=== PATIENT | female | born 1980 | race Caucasian/White ===

== ENCOUNTER 2023-05-27 10:16 | Emergency (ER) | payer OTHER, SELFPAY ==
[2023-05-27 10:20] VITALS: BP 108/73
--- NOTE | 2023-05-27 11:01 | ED.GENMED ---
History of Present Illness
<Rahel Dunn PA-C - Last Filed: 05/27/23 17:41>
General
Chief Complaint: Musculo-Skeletal Complaint
Source: patient
Exam Limitations: none
Time Seen by Provider: 05/27/23 10:29
Nursing documentation reviewed up to this point in time: agreed with
Travel History
Have you had any contact with someone who has COVID-19?: No
Do you have any symptoms of coronavirus? Fever > 100 degrees, chills, cough, shortness of breath, sore throat, loss of taste or smell, muscle aches, or headache?: No
History of Present Illness
History of Present Illness:
Patient is a 42-year-old female with no significant past medical history presenting for evaluation of right foot injury. This occurred about 1 hour ago she said she missed a step while she was walking on the stairs in her home. She landed on her
right foot and was able to stop herself from falling down the stairs. She did not hit her head or sustain any other injuries in the fall. She requires some assistance getting up initially. She has been able to bear minimal weight on her right
foot since. She immediately got in the car and came to the emergency room. Patient denies any numbness or tingling of right foot or toes.
She denies any past injuries to right foot.
Phy Exam
<Rahel Dunn PA-C - Last Filed: 05/27/23 17:41>
Physical Exam
Physical Exam:
General: Well appearing and non-toxic
HEENT: protecting airway
Neck: appears supple
CV: Regular rate rhythm, heart sounds normal, no evidence of cyanosis
Resp: No evidence respiratory distress, lungs clear, no accessory muscle use
Abd: Non-distended
Extremities: Localized edema and tenderness to right dorsal foot at lateral aspect, no tenderness to lateral/medial malleolus, base of fifth metatarsal, midfoot, or base of fibular head; right foot neurovascular intact
Neuro: alert and oriented, speech normal, no focal neurologic deficit
Psych: Normal affect
Skin: Intact, no rashes or bruising
Course
<Rahel Dunn PA-C - Last Filed: 05/27/23 17:41>
Orders/Labs/Results
Orders:
Orders
05/27/23 10:28
CR Foot - Right Min 3 Views Urgent
Comment:
Reason For Exam: injury/pain
05/27/23 11:11
Brandon Wrap Right-Treatment ONCE
Crutches-Treatment ONCE
Ibuprofen [Motrin] 600 mg PO NOW STA
Oxycodone/Acetaminophen [Percocet 5/325] 1 tablet PO NOW STA
Vital Signs
Initial and Last Documented VS:
Initial Vital Signs
Temp Pulse Resp BP Pulse Ox
98.4 F 84 18 108/73 100
05/27/23 10:20 05/27/23 10:20 05/27/23 10:20 05/27/23 10:20 05/27/23 10:20
Last Documented Vital Signs
Temp Pulse Resp BP Pulse Ox
98.4 F 84 18 108/73 100
05/27/23 10:20 05/27/23 10:20 05/27/23 10:20 05/27/23 10:20 05/27/23 10:20
<Luis Angel Vieira DO - Last Filed: 05/27/23 11:12>
Orders/Labs/Results
Orders:
Orders
05/27/23 10:28
CR Foot - Right Min 3 Views Urgent
Comment:
Reason For Exam: injury/pain
05/27/23 11:11
Brandon Wrap Right-Treatment ONCE
Crutches-Treatment ONCE
Ibuprofen [Motrin] 600 mg PO NOW STA
Oxycodone/Acetaminophen [Percocet 5/325] 1 tablet PO NOW STA
Vital Signs
Initial and Last Documented VS:
Initial Vital Signs
Temp Pulse Resp BP Pulse Ox
98.4 F 84 18 108/73 100
05/27/23 10:20 05/27/23 10:20 05/27/23 10:20 05/27/23 10:20 05/27/23 10:20
Last Documented Vital Signs
Temp Pulse Resp BP Pulse Ox
98.4 F 84 18 108/73 100
05/27/23 10:20 05/27/23 10:20 05/27/23 10:20 05/27/23 10:20 05/27/23 10:20
<Rahel Dunn PA-C - Last Filed: 05/27/23 17:41>
MDM/Problems Addressed
Differential Diagnosis Includes:
Foot sprain, foot fracture, foot contusion
MDM/Problems Addressed:
Patient is a 42-year-old female presenting for evaluation of right foot injury after fall about an hour ago. She presents with pain in right foot. She did not hit her head or sustain any other injuries in the fall. Physical exam as documented
above. Tenderness and edema to right dorsal foot. No tenderness at base of fifth metatarsal, medial/lateral malleolus, base fibular head. Right foot neurovascular intact. Very low concern for contaminant ankle injury. Will get x-ray of right
foot. Will give Motrin/Percocet for pain.
X-ray shows no evidence of acute fracture or dislocation. Suspect this is likely a sprain of the right foot. She is stable for discharge with Brandon wrap/crutches. Supportive care at home. Return precautions discussed. Orthopedic referral given if
symptoms persist/worsen patient is comfortable this plan all questions answered.
Chronic conditions affecting care:
N/A
Acute Exacerbation and/or Progression of Chronic Illness:
Acute sprain of right foot
<Rahel Dunn PA-C - Last Filed: 05/27/23 17:41>
*Radiology
Radiology exam reviewed: preliminary read by ED provider and radiology read reviewed
*Pulse Oximetry
Patient hypoxic: no
*[place] Interpretation
Rate: [place]- N/A
*Critical Care Note
Total Time (30-74mins, 75-104mins- exclusive of procedures): Not Applicable
ED Attending Note
<Rahel Dunn PA-C - Last Filed: 05/27/23 17:41>
-
Portions of this chart may have been created with voice recognition software.� Occasional wrong word or��sound alike� substitutions may have occurred due to the inherent limitations of voice recognition software.
<Luis Angel Vieira DO - Last Filed: 05/27/23 11:12>
ED Attending Note
Patient seen and examined by attending physician: Yes
I performed the substantive portion of visit, reviewed & personally made and approve the management plan that is documented in note by myself or ALEX.: Yes
ED Attending Note:
Seen with PA examined independently. Assessment and plan inversion injury to the right foot no tenderness over the lateral malleolus, x-ray noted
Discharge Plan
Departure
Patient Disposition: Home (Routine Discharge)
Date of Disposition: 05/27/23
Time of Disposition: 11:26
Patient with high blood pressure during this ER visit?: No
Condition: Good
Covid-19: Not Applicable
Discharge Problem:
Right foot sprain
Instructions: Sprain (DC), Foot Sprain ED
Referrals:
Uziel Bustamante MD [Family Provider] -
Tali Dickey I., DO [Active] - As needed
Activity Restrictions/Additional Instructions:
-Return to the emergency department with any severe pain, high fevers, numbness/tingling in right lower extremity, intractable pain, significant worsening in current symptoms, or any other concerns
-You can take motrin as needed for pain. Follow package instructions for dosing.
-Continue to use crutches over the next few days and increase weight bearing as tolerated. Keep foot wrapped with BRANDON bandage and apply ice
-Follow-up with orthopedics if symptoms persists or worsen over the next few weeks
Interventions
Interventions:
*Risk Screen - Suicide Last Done: 05/27/23 12:05
*General Assessment Last Done: 05/27/23 12:05
*Neglect/Abuse Screening Last Done: 05/27/23 12:05
ED- Fall Risk Assessment Last Done: 05/27/23 11:08
*ED COVID-19 Vaccine History Last Done: 05/27/23 10:25
*Nursing Disposition Last Done: 05/27/23 12:05
ED-Musculoskeletal Assessment Last Done: 05/27/23 11:08
Discharge Date and Time
Discharge Date/Time: 05/27/23 12:07
[2023-05-27] MEDS: MOTRIN 600 MG PO (11:25)
[2023-05-27] MEDS: PERCOCET 5/325 1 TABLET PO (11:25)
== END 2023-05-27 12:07 | disposition home or self-care (01) ==
LOC: EMR 10:16
PROVIDERS: EMERGENCY PHYSICIAN Emergency Medicine; FAMILY PHYSICIAN Family Medicine
DX: S93.601A Unspecified sprain of right foot, initial encounter (principal); W10.9XXA Fall (on) (from) unspecified stairs and steps, initial encounter
CPT/HCPCS: 99283; 73630

== ENCOUNTER 2023-06-21 08:10 | Outpatient (RCR) | payer OTHER, SELFPAY | END 2023-06-21 23:59 | disposition home or self-care (01) | LOC: RPT 08:10 | PROVIDERS: ATTENDING PHYSICIAN Family Medicine | DX: M25.512 Pain in left shoulder (principal); M79.622 Pain in left upper arm; Z73.6 Limitation of activities due to disability | CPT/HCPCS: 97110; 97112; 97162 ==

== ENCOUNTER 2023-07-19 06:37 | Outpatient (RCR) | payer OTHER, SELFPAY | END 2023-07-19 23:59 | disposition home or self-care (01) | LOC: RPT 06:37 | PROVIDERS: ATTENDING PHYSICIAN Family Medicine | DX: M25.512 Pain in left shoulder (principal); M79.622 Pain in left upper arm; M25.522 Pain in left elbow; Z73.6 Limitation of activities due to disability | CPT/HCPCS: 97010; 97110; 97112; 97140 ==

== ENCOUNTER 2023-08-09 07:02 | Outpatient (RCR) | payer OTHER, SELFPAY | END 2023-08-09 23:59 | disposition home or self-care (01) | LOC: RPT 07:02 | PROVIDERS: ATTENDING PHYSICIAN Family Medicine | DX: M25.512 Pain in left shoulder (principal); M79.622 Pain in left upper arm; M25.522 Pain in left elbow; Z73.6 Limitation of activities due to disability | CPT/HCPCS: 97010; 97110; 97140 ==

== ENCOUNTER → 2024-02-06 14:41 | Outpatient (REF) | payer OTHER, SELFPAY | LOC: WDC 14:41 | PROVIDERS: ATTENDING PHYSICIAN Obstetrics & Gynecology; FAMILY PHYSICIAN Family Medicine | DX: Z12.31 Encounter for screening mammogram for malignant neoplasm of breast (principal) | CPT/HCPCS: 77063; 77067 ==

== ENCOUNTER → 2024-02-21 10:22 | Outpatient (REF) | payer OTHER, SELFPAY | LOC: WDC 10:22 | PROVIDERS: ATTENDING PHYSICIAN Obstetrics & Gynecology; FAMILY PHYSICIAN Family Medicine | DX: R92.8 Other abnormal and inconclusive findings on diagnostic imaging of breast (principal) | CPT/HCPCS: 76642 ==

== ENCOUNTER → 2024-07-09 07:52 | Outpatient (REF) | payer OTHER, SELFPAY | LOC: WDC 07:52 | PROVIDERS: ATTENDING PHYSICIAN Obstetrics & Gynecology; FAMILY PHYSICIAN Family Medicine | DX: R92.8 Other abnormal and inconclusive findings on diagnostic imaging of breast (principal) | CPT/HCPCS: 76642 ==

== ENCOUNTER → 2025-01-07 07:49 | Outpatient (REF) | payer OTHER, SELFPAY | LOC: WDC 07:49 | PROVIDERS: ATTENDING PHYSICIAN Obstetrics & Gynecology; FAMILY PHYSICIAN Family Medicine | DX: R92.8 Other abnormal and inconclusive findings on diagnostic imaging of breast (principal) | CPT/HCPCS: 76642 ==

== ENCOUNTER → 2025-02-26 10:42 | Outpatient (REF) | payer OTHER, SELFPAY | LOC: WDC 10:42 | PROVIDERS: ATTENDING PHYSICIAN Obstetrics & Gynecology; FAMILY PHYSICIAN Family Medicine | DX: Z12.31 Encounter for screening mammogram for malignant neoplasm of breast (principal) | CPT/HCPCS: 77063; 77067 ==

== ENCOUNTER → 2025-03-12 10:37 | Outpatient (REF) | payer OTHER, SELFPAY | LOC: WDC 10:37 | PROVIDERS: ATTENDING PHYSICIAN Obstetrics & Gynecology; FAMILY PHYSICIAN Family Medicine | DX: R92.8 Other abnormal and inconclusive findings on diagnostic imaging of breast (principal) | CPT/HCPCS: 76642 ==